=== PATIENT | female | born 1980 | race Caucasian/White ===

== ENCOUNTER → 2020-07-25 | Outpatient (CLI) | payer BC ==
[2020-07-26 10:15] LABS: VITAMIN D, 25-HYDROXY 43.4 ng/mL (30.0-100.0)
== END ==
LOC: LAB 13:46
PROVIDERS: Internal Medicine
DX: D64.9 Anemia, unspecified (principal); E55.9 Vitamin D deficiency, unspecified; R76.8 Other specified abnormal immunological findings in serum; M25.50 Pain in unspecified joint; Z72.820 Sleep deprivation; Z87.898 Personal history of other specified conditions; D89.89 Other specified disorders involving the immune mechanism, not elsewhere classified
CPT/HCPCS: 82085; 82550; 82607; 82728; 82746; 83520; 83540; 83550; 84466; 85045